=== PATIENT | female | born 1960 | race Caucasian/White ===

== ENCOUNTER 2018-09-17 05:19 | Observation (INO) | payer OTHER ==
[~2018-09-17] VITALS: Ht 175.3 cm; Wt 70.8 kg
--- OUTSIDE RECORDS SUMMARY | 2018-09-17 05:22 | XMS REPORT | Encounter Summary ---
Author Organization Unknown Address [address] [place] [address] Phone [phone] Reason for Visit Medical Complaint Instructions 1. Acute urinary tract infection Macrobid 100 mg capsule culture, urine urinalysis, dipstick 2. Immunization Fluzone Quad 3014-5790 60 mcg (15 mcg x 4)/0.5 mL IM suspension Prevnar 13 (PF) 0.5 mL intramuscular syringe 3. Counseling 4. Normal body mass index 5. Exercises education, guidance, and counseling 6. Dietary management surveillance Discussion Note Pt is aaox3 and in NAD; verbalizes understanding of all instructions and has no further questions at this time Patient educational handouts: No information available. Plan of Care Patient Instructions How can you care for yourself at home? Take your antibiotics as directed. Do not stop taking them just because you feel better. You need to take the full course of antibiotics. Drink extra water and other fluids for the next day or two. This may help wash out the bacteria that are causing the infection. (If you have kidney, heart, or liver disease and have to limit fluids, talk with your doctor before you increase your fluid intake.) Avoid drinks that are carbonated or have caffeine. They can irritate the bladder. Urinate often. Try to empty your bladder each time. To relieve pain, take a hot bath or lay a heating pad set on low over your lower belly or genital area. Never go to sleep with a heating pad in place. To prevent UTIs Drink plenty of water each day. This helps you urinate often, which clears bacteria from your system. (If you have kidney, heart, or liver disease and have to limit fluids, talk with your doctor before you increase your fluid intake.) Consider adding cranberry juice to your diet. Urinate when you need to. Urinate right after you have sex. Change sanitary pads often. Avoid douches, bubble baths, feminine hygiene sprays, and other feminine hygiene products that have deodorants. After going to the bathroom, wipe from front to back. Take medications as prescribed and discussed; follow up with your PCP within 2- 3 days or sooner should symptoms worsen. Follow up with your primary care provider as needed. Refer to your vaccine information sheet regarding more information about the vaccine administered. Reminders Provider Appointments None recorded. Lab Culture, Urine 03/21/2016 [facility] Urinalysis, Dipstick 03/21/2016 [facility] Referral None recorded. Procedures None recorded. Surgeries None recorded. Imaging None recorded. Medications Name Start Date Advair Diskus 250 mcg-50 mcg/dose powder for inhalation Inhale 1 puff twice a day by inhalation route as directed. Diflucan 150 mg tablet Take 1 tab today, then repeat on day 3. Macrobid 100 mg capsule Take 1 capsule every 12 hours by oral route as directed for 7 days. Maxalt Maxalt 10 mg tablet Take 1 tab by mouth at onset of migraine, and repeat in 2-3 hrs as need rizatriptan 10 mg disintegrating tablet Medications Administered None recorded. Vitals Height Weight BMI Blood Pressure 5 ft 9 in 166 lbs 24.5 110/74 Lab Results Date Name Result Description Value Range Status Urinalysis, Dipstick Color : Red Clarity : Cloudy Leukocytes : Large Comments : pt just took AZO; unable to see rest of results clearly Allergies Name Reaction Severity Onset NKDA Problems Name Status Onset Date Source Acute Maxillary Sinusitis Active Encounter Urinary Tract Infectious Disease Active Encounter Acute Urinary Tract Infection Active Encounter Wheezing Active Encounter Procedures Date Name Performed by Hysterectomy Information not available Vaccine List Vaccine Type influenza, injectable, quadrivalent 03/21/20160.5 mL pneumococcal conjugate PCV 13 03/21/20160.5 mL Social History Smoking Status Never Smoker Past Encounters 03/21/2016 Acute Urinary Tract Infection; Immunization; Counseling; Normal Body Mass Index; Exercises Education, Guidance, and Counseling; Dietary Management Surveillance JUANA Pierre: [address] [place] [address], Ph. History of Present Illness [id number] Reported By: Patient HPI: Location: urethra. Quality: pressure, burning. Severity: worsening, moderate. Duration: started yesterday, intermittent. Onset/Timing: worse, sudden. Context: not sexually active, no known exposure to STD, no prior history of STDs, denies possible , heterosexual, history of urine cultures/antibiotic treatment, wipes anterior to posterior, voids after intercourse. Modifying factors nothing makes it worse, nothing gives relief. Associated Symptoms: no fever/chills, no flank pain, no jaundice, no blood in the urine, no pain during urination, no vaginal discharge, no urgency, no blisters on genitals, no rash on genitals, burning sensation during urination, urinary frequency Review of Systems:ROS as noted in the HPI Review of Systems Basic Reported By: Patient Physical Exam Adult Basic, Adult Female Complete Reported By: Patient Constitutional: General Appearance: healthy-appearing, well-nourished, well-developed. Level of Distress: NAD. Ambulation: ambulating normally Psychiatric: Mental Status: active and alert. Orientation: to time, to place, to person Lungs: Respiratory effort: no dyspnea, no tachypnea, no use of accessory muscles, no intercostal retractions. Auscultation: breath sounds normal Cardiovascular: Heart Auscultation: RRR, no murmurs Neurologic: Gait and Station: normal gait, normal station Abdomen: Bowel Sounds: normal. Inspection and Palpation: soft, non-distended, no guarding, no rebound tenderness, no masses, no CVA tenderness, suprapubic tenderness. Liver: non-tender, no hepatomegaly. Spleen: non-tender, no splenomegaly. Hernia: none palpable
--- OUTSIDE RECORDS SUMMARY | 2018-09-17 05:22 | XMS REPORT | Continuity of Care Document ---
Author Author [facility] Interface Address Unknown Phone Unavailable Problems Problem Status Onset Date Classification Date Reported Comments Source Acute urinary tract infection 03/21/2016 Diagnosis 03/21/2016 [facility] Immunization 03/21/2016 Diagnosis 03/21/2016 [facility] Counseling 03/21/2016 Diagnosis 03/21/2016 [facility] Normal body mass index 03/21/2016 Diagnosis 03/21/2016 [facility] Exercises education, guidance, and counseling 03/21/2016 Diagnosis 03/21/2016 [facility] Dietary management surveillance 03/21/2016 Diagnosis 03/21/2016 [facility] Acute Maxillary Sinusitis Problem 03/21/2016 [facility] Urinary Tract Infectious Disease Problem 03/21/2016 [facility] Acute Urinary Tract Infection Problem 03/21/2016 [facility] Wheezing Problem 03/21/2016 [facility] Medications Medication Details Route Status Patient Instructions Ordering Provider Order Date Source Fluticasone propionate 0.25 MG/ACTUAT / salmeterol 0.05 MG/ACTUAT Dry Powder Inhaler Advair Diskus 250 mcg-50 mcg/dose powder for inhalation Inhale 1 puff twice a day by inhalation route as directed. Active [facility] Fluconazole 150 MG Oral Tablet [Diflucan] Diflucan 150 mg tablet Take 1 tab today, then repeat on day 3. Active [facility] NITROFURANTOIN, MACROCRYSTALS 25 MG / Nitrofurantoin, Monohydrate 75 MG Oral Capsule [Macrobid] Macrobid 100 mg capsule Take 1 capsule every 12 hours by oral route as directed for 7 days. Active [facility] Maxalt Maxalt Active [facility] rizatriptan 10 MG Oral Tablet [Maxalt] Maxalt 10 mg tablet Take 1 tab by mouth at onset of migraine, and repeat in 2-3 hrs as need Active [facility] rizatriptan 10 MG Disintegrating Oral Tablet rizatriptan 10 mg disintegrating tablet Active [facility] Allergies, Adverse Reactions, Alerts Substance Category Reaction Severity Reaction type Status Date Reported Comments Source Immunizations Immunization Date Given Site Status Last Updated Comments Source pneumococcal conjugate PCV 13 03/21/2016 completed [facility] influenza, injectable, quadrivalent 03/21/2016 completed [facility] Results Order Name Results Value Reference Range Date Interpretation Comments Source Urinalysis macro (dipstick) panel - Urine COLOR : Red 03/21/2016 [facility] Urinalysis macro (dipstick) panel - Urine CLARITY : Cloudy 03/21/2016 [facility] Urinalysis macro (dipstick) panel - Urine LEUKOCYTES : Large 03/21/2016 [facility] Urinalysis macro (dipstick) panel - Urine COMMENTS : pt just took AZO; unable to see rest of results clearly 03/21/2016 [facility] Vital Signs Vital Sign Value Date Comments Source Diastolic (mm Hg) 74 03/21/2016 [facility] Height 69 03/21/2016 [facility] Systolic (mm Hg) 110 03/21/2016 [facility] Weight 166 03/21/2016 [facility] Encounters Location Location Details Encounter Type Encounter Number Reason For Visit Attending Provider ADM Date DC Date Status Source [place] - [facility] - [id number] Almeida, AIR CONDITIONING INSTALLER: [address] [place] [address], Ph. [id number] Reagan Almeida 03/21/2016 [facility] Procedures Procedure Code Date Perfomer Comments Source Hysterectomy [facility]
[2018-09-17] MEDS ORDERED: ASPIRIN 81 MG CHEW TAB PO ONE (05:45)
[2018-09-17] MEDS ORDERED: ZOLPIDEM TARTRATE 5 MG TAB PO PRN (05:45)
[2018-09-17] MEDS ORDERED: MORPHINE SULFATE 2 MG/ML SYR 1ML IV PRN (05:45)
[2018-09-17] MEDS ORDERED: ONDANSETRON HCL INJ 2MG/ML 2ML 2 MG/ML VIAL IV PRN ×2 (05:45)
[2018-09-17] MEDS ORDERED: DIPHENHYDRAMINE HCL INJ 50 MG/ML VIAL IV PRN (05:45)
[2018-09-17] MEDS ORDERED: ACETAMINOPHEN 325 MG TAB PO PRN (05:45)
[2018-09-17] MEDS ORDERED: NITROGLYCERIN 2% OINT 1 GM PKT TOP ONE (05:45)
[2018-09-17] MEDS ORDERED: FAMOTIDINE 20 MG TAB PO SCH ×2 (05:45→18:00)
[2018-09-17] MEDS ORDERED: FAMOTIDINE 20 MG/2 ML VIAL IV ONE (05:45)
[2018-09-17] MEDS ORDERED: ACETAMINOPHEN 325 MG TAB PO ONE (05:45)
--- NOTE | 2018-09-17 06:03 | NUR ---
CALLED [facility] FOR TRANSPORT - ETA 45MIN
--- NOTE | 2018-09-17 06:21 | Diagnostic Imaging Report ---
EXAMINATION: CXR 2 VIEW - HOPD INDICATION: Left upper quadrant and chest pain ^[id number] ^0600 COMPARISON: FINDINGS: PA and lateral views TUBES and LINES: None. LUNGS: Lungs are well inflated. Lungs are clear. There is no evidence of pneumonia or pulmonary edema. PLEURA: No pleural effusion or pneumothorax. HEART AND MEDIASTINUM: The cardiomediastinal silhouette is unremarkable. BONES AND SOFT TISSUES: No acute osseous lesion.Mild wedge deformity of an upper thoracic vertebral body. Soft tissues are unremarkable. UPPER ABDOMEN: No free air under the diaphragm. IMPRESSION: No acute thoracic abnormality. Signed by: DR. All Mills MD on 09/17/2018 6:18 AM
--- OUTSIDE RECORDS SUMMARY | 2018-09-17 06:26 | XMS REPORT ---
Author [facility] Address Unknown Phone Unavailable Care Team Providers Care Wage Conciliator Name Role Phone Kerline REYNOLDS Unavailable Unavailable Problems This patient has no known problems. Allergies, Adverse Reactions, Alerts This patient has no known allergies or adverse reactions. Medications This patient has no known medications. Results Test Description Test Time Test Comments Text Results Atomic Results Result Comments CXR 2 VIEW - HOPD 2018-09-17 06:17:00 [place] [address] Patient Name: JALIL CALLAHAN MR #: [id number] : 1960 Age/Sex: 58/F Req #: [id number] Adm Physician: Ordered by: MARTHA REYNOLDS MD Report #: [id number] Location: [facility] Room/Bed: Procedure: [id number] HOPD/CXR 2 VIEW - HOPD Exam Date: 09/17/18 Exam Time: 0600 REPORT STATUS: Signed EXAMINATION: CXR 2 VIEW - HOPD INDICATION: Left upper quadrant and chest pain [id number] COMPARISON: FINDINGS: PA and lateral views TUBES and LINES: None. LUNGS: Lungs are well inflated. Lungs are clear. There is no evidence of pneumonia or pulmonary edema. PLEURA: No pleural effusion or pneumothorax. HEART AND MEDIASTINUM: The cardiomediastinal silhouette is unremarkable. BONES AND SOFT TISSUES: No acute osseous lesion.Mild wedge deformity of an upper thoracic vertebral body. Soft tissues are unremarkable. UPPER ABDOMEN: No free air under the diaphragm. IMPRESSION: No acute thoracic abnormality. Signed by: DR. All Rice MD on 09/17/2018 6:18 AM Dictated By: ALL RICE MD 7 Transcribed By: CANDICE on 09/17/18617 COPY TO: MARTHA REYNOLDS MD
--- NOTE | 2018-09-17 07:20 | NUR ---
ARRIVED VIA STRETCHER FROM OUTSIDE ER, AA&OX3, RA, TELEMETRY PLACED PER MD ORDER, PT C/O INTERMITTENT LEFT SIDED ANTERIOR CHEST AND UNDER HER LEFT AXILLARY, - AT THIS TIME, ORIENTED TO ROOM AND CALL LIGHT SYSTEM, CALL LIGHT WITHIN REACH, FAMILY AT SIDE
[2018-09-17 08:00] VITALS: BP 136/79
[2018-09-17 08:09] VITALS: BP 136/79
[2018-09-17] MEDS ORDERED: ASPIRIN 325 MG TAB EC PO SCH (09:00)
[2018-09-17] MEDS ORDERED: MORPHINE SULFATE INJ 4 MG/ML INJ 1ML IV PRN (09:15)
--- NOTE | 2018-09-17 09:44 | NUR ---
MD Shavon BROWN INTO SEE PT, DISCUSSED POC, CONSENT COMPLETED FOR STRESS TEST,
[2018-09-17] MEDS ORDERED: REGADENOSON 0.4 MG/5 ML SYR IV ONE (10:53)
--- NOTE | 2018-09-17 11:05 | NUR ---
MD GUILLERMO INTO SEE PT, DISCUSSED POC
--- NOTE | 2018-09-17 11:09 | NUR ---
PT WHEELED OFF UNIT VIA WC FOR STRESS TEST, NO CHANGE IN CONDITION, FAMILY AT SIDE
--- NOTE | 2018-09-17 12:35 | NUR ---
CASE MANAGEMENT INITIAL ASSESSMENT General Claims Agent to bedside to discuss plan of care with patient/family. CM/SW role and care transitions discussed. Anticipated discharge plan discussed along with duration of care. CM/SW discussed patients right to make decisions in care. CM work hours given. Patient lives: PATIENT LIVES IN SINGLE STORY HOME WITH DAUGHTER IN [facility], [place] Admit/Transfer: OR Hospital/ER visits since last admit: NONE POA/Emergency contact: DAUGHTER LAXMI BOOTHE: [phone] Current/Previous Home Health: NONE PCP/Follow-up Care: DR. SERRANO Current/Previous DME: NONE Medications (referring to index hospitalization or the first time you were in the hospital) a. Were changes made in your medications when you were in the hospital on [date of index hospitalization]? Yes No Not sure Explain: Note: If no or not sure, please skip to question d b. Did you understand the changes? Yes No Explain: c. Were you able to obtain your new medications right away? Yes Non/a SNF only Explain: d. Were you able to take your medications like the doctor wanted you to? Yes No Explain: e. Did the hospital give you an accurate, easy to understand list of medications when you left? Yes No n/a SNF only Explain: Scale of 1-10 how comfortable does patient feel with disease management in outpatient setting: Other Services: NONE Employment Status: EMPLOYED WITH [employer]CHO[employer] Areas of Concerns: NONE Referral Needs: NONE Education Needs: CARDIAC HEALTH IMM/PAULA given and signed (if applicable): N/A Goal for discharge: DISCHARGE HOME WITH NO NEEDS CM/SW left business card at the bedside with contact information. Name and number was also written on the patients whiteboard. Patient verbalized understanding of discussion. CM will follow-up with ongoing discharge and transition of care needs.
--- NOTE | 2018-09-17 14:35 | NUR ---
BACK IN ROOM VIA WC, PT DENIES ANY PAIN OR DISCOMFORT, CALL LIGHT WITHIN REACH
--- NOTE | 2018-09-17 14:57 | Diagnostic Imaging Report ---
EXAMINATION: CT of the chest with contrast, PE protocol. TECHNIQUE: Spiral CT images of the chest were performed from the lung apices through the level of the adrenal glands after the IV administration of 100 cc of Isovue 370. Thin section reconstructions were obtained with special concentration on the pulmonary arteries. COMPARISON: <none> CLINICAL HISTORY:Left-sided chest pain Intermittently for 3 weeks, DISCUSSION: Lungs: No filling defects are identified in the main, right or left pulmonary arteries to their segmental and levels, to suggest pulmonary embolism. 4 mm pulmonary nodule in the lateral lingula (series 3, image 67), with associated linear scarring. No other nodules. No masses or consolidation. Airways are clear, without endobronchial lesions. Pleura: <There is no evidence of pleural effusion or pneumothorax.> Heart and mediastinum: Thyroid is unremarkable. Heart size is normal. No pericardial effusion. Aorta is nonaneurysmal. Main pulmonary artery is normal in caliber. Lymph nodes: No mediastinal, hilar or axillary adenopathy. Abdomen: The visualized portions of the liver, spleen and pancreas, adrenal glands and kidneys are unremarkable. Bones and soft tissues: No aggressive lytic lesions. Mild degenerative disc changes in the thoracic spine. Soft tissues are unremarkable. IMPRESSION: 1. No CT evidence of pulmonary embolism. 2. 4 mm pulmonary nodule in the lateral lingula. If the patient is low risk, no further follow-up is indicated per Fleischner Society 2017 guidelines. If the patient is high risk, consider CT chest in 12 months to document stability. Signed by: Dr. Neal Mc M.D. on 09/17/2018 2:53 PM
[2018-09-17] MEDS ORDERED: IOPAMIDOL 370 MG/ML 200 ML INFUS..BTL INJ ONE (15:12)
[2018-09-17] MEDS ORDERED: SODIUM CHLORIDE 0.9% 50ML 50 ML ONE (15:12)
--- NOTE | 2018-09-17 16:32 | NUR ---
MD Shavon BROWN INTO SEE PT, DISCUSSED POC AND DISCHARGE INSTRUCTIONS, TELEPHONED MD GUILLERMO, MADE AWARE OF RESULTS AND THAT SCIENTIFIC SOFTWARE ENGINEER OKAYED DC, ORDERS NOTED
[2018-09-17 16:54] VITALS: BP 130/69
--- NOTE | 2018-09-17 17:15 | NUR ---
DISCHARGE INSTRUCTIONS REVIEWED WITH PT, VERBALIZED UNDERSTANDING, REFUSED WC, PT AMBULATED OFF UNIT FOR DISCHARGE WITH PCT AT SIDE, NO CHANGE IN CONDITION
[2018-09-17] MEDS ORDERED: SIMVASTATIN 40 MG TAB PO SCH (21:00)
--- NOTE | 2018-09-17 23:24 | Consultation ---
DATE OF CONSULTATION: 09/17/2018 Cardiology Consult Note REASON FOR CONSULT: Chest pain. CHIEF COMPLAINT: Chest pain. HISTORY OF PRESENT ILLNESS: The patient is a 58-year-old female, no previous history of cardiovascular disease, who presents with episode of left-sided chest pain as well as left arm discomfort. She has been having these episodes for about the past week. 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 Denies any heart failure symptoms. The patient is a nonsmoker. Does not have any family history of early CAD. She does not have diabetes. She is otherwise healthy. She does have a history of blood clots in her legs in the past. REVIEW OF SYSTEMS: As above, otherwise negative. PAST MEDICAL HISTORY: History of blood clots. OUTPATIENT MEDICATIONS: Reviewed. As documented in the MAR. SOCIAL HISTORY: The patient does not smoke, drink, or abuse drugs. FAMILY HISTORY: No family history of early CAD or sudden cardiac . OBJECTIVE: VITAL SIGNS: Temperature afebrile, pulse 65, respiratory rate 18, blood pressure 136/79, and saturating 96% on room air. GENERAL: Middle-aged white female, in no acute distress, well developed, well nourished. CARDIOVASCULAR: Regular rate and rhythm. No murmurs, rubs, or gallops. LUNGS: Clear to auscultation bilaterally. ABDOMEN: Soft, nontender, nondistended. NEURO AND PSYCH: Alert and oriented to person, place, and time. Normal affect. VASCULAR: No carotid bruits. EXTREMITIES: No lower extremity edema. Mild lower extremity varicosities. INPATIENT MEDICATIONS: Reviewed. LABORATORY DATA: Reviewed. Troponin was negative. IMAGING DATA: Reviewed. CT chest was negative for pulmonary emboli. ASSESSMENT: Chest pain. PLAN: Nuclear stress test today. The patient is okay to be discharged home if the nuclear stress test is negative. Thank you for this consult. We will continue to follow. MD SAWYER Cosby/NATALIEL /[id number]
[2018-09-18] MEDS ORDERED: ASPIRIN 325 MG TAB EC PO SCH (09:00)
== END 2018-09-17 17:15 | disposition home or self-care (01) ==
LOC: FSED 05:19 → ERHOLD 05:33 → MED/SURG 07:26
PROVIDERS: ADMIT Internal Medicine; ATTEND Internal Medicine
DX: R07.89 Other chest pain (principal); Z86.718 Personal history of other venous thrombosis and embolism
CPT/HCPCS: 71046; 71260; 78452; 80053; 82553; 84484; 85025; 85379; 93005; 93017; 93306; 93970; 99284; A9502; G0378; J1200; J2270; J2405; J2785; Q9967